=== PATIENT | male | born 1980 | race Caucasian/White ===

== ENCOUNTER 2017-06-30 07:38 | Day surgery (SDC) | payer OTHER ==
[~2017-06-30 07:38] MED LIST: PROPOFOL INJ 200 MG/20 ML VIAL IV ONE
--- NOTE | 2017-06-30 08:37 | Operative Report ---
Operative Report DATE OF SURGERY: 06/30/17 Operative Report: The risks, benefits and alternatives of the procedure including risks of bleeding, perforation requiring surgery are explained to the patient detail and informed consent was obtained. Patient was taken back to the endoscopy suite and placed in the left, lateral decubital position. Timeout was called. Propofol medications administered. A rectal examination was done which did not reveal any masses, tears or fissures. An Olympus videoscope was inserted into the patient's rectum. The scope was then gradually advanced all the way to the cecum. The cecum was identified by the usual anatomical landmarks including the ileocecal valve as well as the appendiceal office. Photodocumentation is obtained. The scope was then sequentially pulled back via the various segments of the colon including the ascending colon, hepatic flexure, transverse colon, splenic flexure, descending colon and finding to the rectosigmoid portions of the colon. Retroflexion maneuver was performed. PREOPERATIVE DIAGNOSIS: Change in bowel habits, abdominal pain. POSTOPERATIVE DIAGNOSIS: Mild right side inflammation status post biopsy OPERATION: Colonoscopy with biopsy SURGEON: SALAS MATA ANESTHESIA: LMAC TISSUE REMOVED OR ALTERED: Right side mucosal specimens obtained COMPLICATIONS: None. ESTIMATED BLOOD LOSS: None. INTRAOPERATIVE FINDINGS: As noted above. PROCEDURE: Patient tolerated the procedure well. No immediate postprocedure complications are noted. Patient discharged in good condition. Discharge date 06/30/2017. Discharge diet: Regular. Discharge activity: Regular. 2-3 week follow-up to discuss findings. Patient is instructed call the office or proceed to the emergency room should there be any further problems or questions. We will wait on pathology.
[2017-06-30 09:09] VITALS: BP 119/58
== END 2017-06-30 09:03 | disposition home or self-care (01) ==
LOC: END 07:38
PROVIDERS: ATTEND Internal Medicine Gastroenterology
PROC: 0DBF8ZX Excision of Right Large Intestine, Via Natural or Artificial Opening Endoscopic, Diagnostic (ICD-10-PCS; principal; 2017-06-30 09:00)
DX: K52.9 Noninfective gastroenteritis and colitis, unspecified (principal); I10 Essential (primary) hypertension; Z79.899 Other long term (current) drug therapy; Z79.82 Long term (current) use of aspirin
CPT/HCPCS: 45380; 88305 ×2; J2704; 810

== ENCOUNTER 2019-02-09 19:12 | Emergency (ER) | payer BC, OTHER ==
--- NOTE | 2019-02-09 20:58 | ER Document Report ---
ED Medical Screen (RME) - General Chief Complaint: Abdominal Pain Stated Complaint: RIGHT SIDE PAIN Time Seen by Provider: 02/09/19 20:54 Notes: Patient is a 38-year-old male presents to the emergency department for right upper quadrant pain that started around 1600 hrs. today. Patient states he does have an extensive history of intermittent right upper abdominal pain. States he has been to urgent care for evaluation but has never had any imaging testing done. Patient is denying any vomiting, diarrhea, fever. Past medical history: Hypertension, hyperlipidemia Medications: Candesartan Allergies: None Surgical history: None gENERAL: Alert, interacts well. No acute distress. ABDOMEN: Soft, minor tenderness noted right upper quadrant, non-distended. Bowel sounds present in all 4 quadrants. No McBurney's point tenderness. SKIN: Warm, dry, normal turgor. No rashes or lesions noted. I have greeted and performed a rapid initial assessment of this patient. A comprehensive ED assessment and evaluation of the patient, analysis of test results and completion of the medical decision making process will be conducted by additional ED providers. TRAVEL OUTSIDE OF THE [place] IN LAST 30 DAYS: No - Related Data Allergies/Adverse Reactions: No Known Allergies Allergy (Verified 06/30/17 07:41) Past Medical History - Past Medical History Cardiac Medical History: Reports: Hx Hypertension Denies: Hx Coronary Artery Disease, Hx Heart Attack Pulmonary Medical History: Reports: Hx Asthma - CHILDHOOD Denies: Hx Bronchitis, Hx COPD, Hx Pneumonia Neurological Medical History: Denies: Hx Cerebrovascular Accident, Hx Seizures Musculoskeltal Medical History: Denies Hx Arthritis Psychiatric Medical History: Reports: Hx Depression - Immunizations Hx Diphtheria, Pertussis, Tetanus Vaccination: - UNSURE Physical Exam - Vital signs Vitals: Temp Pulse Resp BP Pulse Ox 99.4 F 70 16 151/79 H 100 02/09/19 19:19 02/09/19 19:19 02/09/19 19:19 02/09/19 19:19 02/09/19 19:19 Course - Vital Signs Vital signs: Temp Pulse Resp BP Pulse Ox 99.4 F 70 16 151/79 H 100 02/09/19 19:19 02/09/19 19:19 02/09/19 19:19 02/09/19 19:19 02/09/19 19:19
[2019-02-09 21:40] LABS: ABSOLUTE BASOPHILS # (AUTO) 0.1 10^3/uL (0.0-0.2); ABSOLUTE EOSINOPHILS # (AUTO) 0.2 10^3/uL (0.0-0.6); ABSOLUTE LYMPHOCYTES (AUTO) 3.1 10^3/uL (0.5-4.7); ABSOLUTE MONOCYTES (AUTO) 0.6 10^3/uL (0.1-1.4); ABSOLUTE NEUT (AUTO) 6.4 10^3/uL (1.7-8.2); BASOPHILS % (AUTO) 0.6 % (0-2); EOSINOPHILS % (AUTO) 1.5 % (0-6); HEMATOCRIT 45.8 % (37.9-51.0); HEMOGLOBIN 16.2 g/dL (13.5-17.0); LYMPHOCYTES % (AUTO) 29.8 % (13-45); MEAN CORPUSCULAR HEMOGLOBIN 29.8 pg (27.0-33.4); MEAN CORPUSCULAR HGB CONC 35.4 g/dL (32.0-36.0); MEAN CORPUSCULAR VOLUME 84 fl (80-97); PLATELET COUNT 222 10^3/uL (150-450); RED BLOOD COUNT 5.43 10^6/uL (4.35-5.55); RED CELL DISTRIBUTION WIDTH 13.3 % (11.5-14.0); SEGMENTED NEUTROPHILS % (AUTO) 62.1 % (42-78); TOTAL CELLS COUNTED % (AUTO) 100 %; WHITE BLOOD COUNT 10.3 10^3/uL (4.0-10.5)
[2019-02-09 22:09] LABS: ALANINE AMINOTRANSFERASE 24 U/L (21-72); ALBUMIN 5.1 g/dL (3.5-5.0); ALKALINE PHOSPHATASE 41 U/L (38-126); ANION GAP 11 (5-19); ASPARTATE AMINO TRANSFERASE 17 U/L (17-59); BILIRUBIN,DIRECT 0.1 mg/dL (0.0-0.4); BILIRUBIN,TOTAL 0.5 mg/dL (0.2-1.3); BLOOD UREA NITROGEN 15 mg/dL (7-20); CARBON DIOXIDE 29 mmol/L (22-30); CHLORIDE 100 mmol/L (98-107); GLUCOSE 80 mg/dL (75-110); LIPASE 180.5 U/L (23-300); POTASSIUM 4.4 mmol/L (3.6-5.0); SODIUM 139.9 mmol/L (137-145); TOTAL PROTEIN 7.6 g/dL (6.3-8.2)
--- NOTE | 2019-02-09 22:37 | RADIOLOGY REPORT (SQ) ---
EXAM DESCRIPTION: US ABDOMEN DOPPLER LIMITED COMPLETED DATE/TME: 02/09/2019 20:54 CLINICAL HISTORY: 38 years, Male, RUQ [pain Findings: Pancreas is within normal limits. No focal hepatic lesions. No significant biliary dilatation with CBD measuring 4 mm. Right kidney measures 10 cm in length. No right hydronephrosis. No right upper quadrant ascites. Portal vein is patent with hepatopedal flow noted on color and spectral Doppler imaging. Aorta and IVC are is within normal limits. Gallbladder demonstrate small layering calculi with no significant wall thickening or pericholecystic fluid. IMPRESSION: Cholelithiasis. No evidence for cholecystitis.
--- NOTE | 2019-02-09 23:16 | ER Document Report ---
ED General - General Chief Complaint: Abdominal Pain Stated Complaint: RIGHT SIDE PAIN Time Seen by Provider: 02/09/19 20:54 TRAVEL OUTSIDE OF THE [place] IN LAST 30 DAYS: No - HPI Severity: Moderate Pain Level: 1 Notes: Patient presents to the emergency department for evaluation of epigastric and right upper quadrant abdominal pain. He states he had similar symptoms to this about 6 weeks ago. He was seen at an urgent care. They suspect he may have ga llstones. He states he tried to address this with dietary changes. He was doing well but recently has started eating more fatty and greasy foods. He states earlier today he had food from a [place] restaurant, half an hour later he began having an increase in this pain. He states he still has had a low- grade fevers, but is never had a temperature higher than 100.0. He has had some nausea but no emesis. Normal colored urine. Normal bowel movements. - Related Data Allergies/Adverse Reactions: No Known Allergies Allergy (Verified 06/30/17 07:41) Past Medical History - General Information source: Patient - Social History Smoking Status: Never Smoker Frequency of alcohol use: Rare Drug Abuse: None Family History: Malignancy - Grandmother with cancer of the gallbladder Patient has suicidal ideation: No Patient has homicidal ideation: No - Past Medical History Cardiac Medical History: Reports: Hx Hypertension Denies: Hx Coronary Artery Disease, Hx Heart Attack Pulmonary Medical History: Reports: Hx Asthma - CHILDHOOD Denies: Hx Bronchitis, Hx COPD, Hx Pneumonia Neurological Medical History: Denies: Hx Cerebrovascular Accident, Hx Seizures Renal/ Medical History: Denies: Hx Peritoneal Dialysis Musculoskeletal Medical History: Denies Hx Arthritis Psychiatric Medical History: Reports: Hx Depression - Immunizations Hx Diphtheria, Pertussis, Tetanus Vaccination: - UNSURE Review of Systems - Review of Systems Constitutional: See HPI EENT: No symptoms reported Cardiovascular: No symptoms reported Respiratory: No symptoms reported Gastrointestinal: See HPI Male Genitourinary: No symptoms reported Musculoskeletal: No symptoms reported Skin: No symptoms reported Neurological/Psychological: No symptoms reported Physical Exam - Vital signs Vitals: Temp Pulse Resp BP Pulse Ox 99.4 F 70 16 151/79 H 100 02/09/19 19:19 02/09/19 19:19 02/09/19 19:19 02/09/19 19:19 02/09/19 19:19 - Notes Notes: Vital signs reviewed, please refer to chart. Patient is normocephalic, atraumatic. Pupils equal round, reactive to light. Neck is supple without meningismus. Heart is regular rate and rhythm. Lungs are clear to auscultation bilaterally. Abdomen is soft, nontender, normoactive bowel sounds throughout. Extremities without cyanosis, clubbing, edema. Peripheral pulses are equal. Skin is warm and dry. Patient is awake, alert, neurological exam is nonfocal. Course - Re-evaluation Re-evalutation: 02/09/19 23:10 Patient presents to the emergency department for evaluation. Laboratory investigations and imaging ordered through triage. Labs were entirely unremarkable. Imaging did reveal cholelithiasis without any evidence of cholecystitis or obstruction. The patient's pain is improved without any sort of intervention here. We did have an extensive discussion in regards to dietary and lifestyle changes that could keep his symptoms under control. He voiced understanding to this. I will go ahead and also put the name of our on-call surgeon for evaluation for possible cholecystectomy. We discussed symptoms that should prompt him to return to the ER, including but not limited to fever, increased pain, yellowing of the skin or eyes, and tea colored urine. He voiced understanding to this and will be discharged. - Vital Signs Vital signs: Temp Pulse Resp BP Pulse Ox 99.4 F 70 16 151/79 H 100 02/09/19 19:19 02/09/19 19:19 02/09/19 19:19 02/09/19 19:19 02/09/19 19:19 - Laboratory Result Diagrams: 02/09/19 21:24 02/09/19 21:24 Laboratory results interpreted by me: 02/09/19 21:24 Albumin 5.1 H - Diagnostic Test Radiology reviewed: Reports reviewed - Cholelithiasis without evidence of obstruction or cholecystitis Discharge - Discharge Clinical Impression: Cholelithiasis Qualifiers: Cholelithiasis location: gallbladder Cholecystitis presence: without cholecystitis Disposition: HOME, SELF-CARE Instructions: Gallbladder Disease ([facility]) Additional Instructions: Avoid fatty and greasy foods. If you develop fever, increased pain, yellowing of the skin or eyes, tea colored urine, or any other new or concerning symptoms, return immediately to the emergency department for evaluation. Otherwise follow-up with your primary care physician in 1-2 weeks, and consider consulting our on-call surgeon. Referrals: SUKHDEEP DALTON MD [ACTIVE STAFF] - Follow up as needed
[2019-02-09 23:53] VITALS: BP 133/88
== END 2019-02-10 00:05 | disposition home or self-care (01) ==
LOC: ER 19:12
DX: K80.20 Calculus of gallbladder without cholecystitis without obstruction (principal); R10.9 Unspecified abdominal pain; R10.13 Epigastric pain; R10.11 Right upper quadrant pain; R50.9 Fever, unspecified; R11.0 Nausea; I10 Essential (primary) hypertension; J45.909 Unspecified asthma, uncomplicated
CPT/HCPCS: 36415; 76705; 80053; 83690; 85025; 93976; 99284

== ENCOUNTER 2019-04-02 12:27 | Day surgery (SDC) | payer BC ==
[2019-03-29 10:01] LABS: ALANINE AMINOTRANSFERASE 36 U/L (21-72); ALKALINE PHOSPHATASE 41 U/L (38-126); ANION GAP 16 (5-19); ASPARTATE AMINO TRANSFERASE 27 U/L (17-59); BILIRUBIN,DIRECT 0.2 mg/dL (0.0-0.4); BILIRUBIN,TOTAL 0.8 mg/dL (0.2-1.3); BLOOD UREA NITROGEN 14 mg/dL (7-20); CALCIUM 10.4 mg/dL (8.4-10.2); CARBON DIOXIDE 27 mmol/L (22-30); CHLORIDE 102 mmol/L (98-107); GLUCOSE 86 mg/dL (75-110); POTASSIUM 5.3 mmol/L (3.6-5.0); SODIUM 145.3 mmol/L (137-145)
[2019-03-29 10:13] LABS: TOTAL PROTEIN 8.1 g/dL (6.3-8.2)
--- NOTE | 2019-03-29 19:24 | EKG REPORT ---
SEVERITY:- NORMAL ECG - SINUS RHYTHM : Confirmed by: Chastity Mcpherson 29-Mar-2019 19:23:39
[~2019-04-02 12:27] MED LIST changes: +BUPIVACAINE HCL 0.25 % INJ/PF (2.5 MG/1 ML) 30 ML VIAL ONE; +CEFAZOLIN 2 GM/D5W RTU 2 GM/50 ML RTUPB IV ONE; +CEFOXITIN SODIUM 2 GM in DEXTROSE 5%-WATER 100 ML IV PRN; +IBUPROFEN 800 MG in NORMAL SALINE 250 ML IV PRN; +LACTATED RINGERS 1000 ML IV PRN; +LIDOCAINE 0.5% INJ-PF (5 MG/ML) 50 ML SDV SUBCUT PRN; -PROPOFOL INJ 200 MG/20 ML VIAL IV ONE; +ROCURONIUM BROMIDE INJ 50 MG/5 ML VIAL IV ONE; +SUCCINYLCHOLINE CHLORIDE INJ 200 MG/10 ML VIAL ONE
[2019-04-02] MEDS ORDERED: MIDAZOLAM 2 MG/2 ML INJ ONE (18:03)
[2019-04-02] MEDS ORDERED: FENTANYL CITRATE INJ/PF 100 MCG/2 ML AMPUL ONE (18:03)
[2019-04-02] MEDS ORDERED: HYDROMORPHONE HCL INJ/PF 2 MG/ML AMPULE ONE (18:03)
[2019-04-02] MEDS ORDERED: ONDANSETRON HCL INJ/PF 4 MG/2 ML SDV ONE ×2 (18:04→20:38)
[2019-04-02] MEDS ORDERED: PROPOFOL INJ 200 MG/20 ML VIAL IV ONE (18:04)
[2019-04-02] MEDS ORDERED: DEXAMETHASONE SOD PHOSPHATE INJ 4 MG/1 ML VIAL ONE (18:04)
[2019-04-02] MEDS ORDERED: MORPHINE SULFATE 10 MG/ML INJ IV PRN (18:52)
[2019-04-02] MEDS ORDERED: MEPERIDINE HCL/PF INJ 25 MG/1 ML DISP.SYRIN IV PRN (18:52)
[2019-04-02] MEDS ORDERED: FENTANYL CITRATE INJ/PF 100 MCG/2 ML AMPUL IV PRN ×3 (18:52)
[2019-04-02] MEDS ORDERED: DIPHENHYDRAMINE HCL 50 MG/ML VIAL IV PRN (18:52)
[2019-04-02] MEDS ORDERED: PROMETHAZINE HCL INJ 25 MG/1 ML VIAL IV PRN (18:52)
[2019-04-02] MEDS ORDERED: NALOXONE HCL INJ/PF 0.4 MG/1 ML SDV ONE (20:57)
[2019-04-02 22:21] VITALS: BP 139/71
--- NOTE | 2019-04-04 22:45 | Discharge Summary ---
Discharge Summary (SDC) - Discharge Final Diagnosis: Symptomatic cholelithiasis Date of Surgery: 04/02/19 Discharge Date: 04/02/19 Condition: Stable Forms: ASU Anesthesia D/C Instruction, Discharge POC-Surgical Service Treatment or Instructions: Discharge home. Diet as tolerated. Activity: No lifting greater than 10 pounds x 6 weeks. Follow-up with me in 7 to 10 days. Ibuprofen 800 mg p.o. 3 times daily with meals. Moclips 10/325 mg p.o. every 6 hours as needed for pain. Referrals: KHOI BURGESS MD [ACTIVE STAFF] - (Follow up with Dr Burgess in 7-10 days.) AMINATA GARCIA MD [Primary Care Provider] - Discharge Diet: As Tolerated Respiratory Treatments at Home: Deep Breathing/Coughing, Incentive Spirometer Discharge Activity: No Lifting Over 10 Pounds, No Lifting/Push/Pulling Home Care Assistance: Provided by Family Report the Following to Your Physician Immediately: Shortness of Breath, Nausea, Vomiting, Increase in Pain, Yellow Skin, Fever over 101 Degrees, Unusual Bleeding, Redness, Swelling, Warmth, Increased Soreness, Drainage-Yellow, IV Site Infection Signs
--- NOTE | 2019-04-04 22:50 | Operative Report ---
Nonrecallable Operative Report DATE OF SURGERY: 04/02/19 PREOPERATIVE DIAGNOSIS: Symptomatic cholelithiasis POSTOPERATIVE DIAGNOSIS: Same OPERATION: Laparoscopic cholecystectomy SURGEON: KHOI STEVENS ANESTHESIA: GA TISSUE REMOVED OR ALTERED: Gallbladder COMPLICATIONS: None apparent ESTIMATED BLOOD LOSS: Minimal PROCEDURE: Drains/implants: None. Procedure in detail: After informed consent was obtained, the patient was brought into the operating room and laid in the supine position. The area of the abdomen was prepped and draped in a normal sterile fashion. A supraumbilical incision was created with a 15 blade scalpel. Dissection was carried through the subcutaneous tissue using sharp and blunt dissection. The cicatrix was identified, grasped with a Ashley clamp, and retracted upwards. The linea alba fascia was incised sharply, the abdomen was entered sharply. The balloon trocar was inserted, and pneumoperitoneum was achieved. A subxiphoid 5 mm port was placed under direct laparoscopic visualization. 2 more 5 mm ports were placed in the right upper quadrant in similar fashion. Atraumatic graspers were placed through the 5 mm ports. The gallbladder was retracted cephalad and laterally. Dissection was begun in the triangle of Calot. The cystic duct and cystic artery were fully visualized and skeletonized, seeing the liver through the triangle. Once the critical view of safety was obtained, the cystic duct and cystic artery were clipped and cut with laparoscopic instruments. The gallbladder was then removed from the liver using Bovie electrocautery. The gallbladder was grasped with a large clamp and pulled out through the umbilicus. The camera was reinserted. The hilum was inspected. It was found to be free of any leakage of blood or bile. Once this was confirmed, the 5 mm trochars were removed under direct laparoscopic visualization. The supraumbilical trocar was removed, and pneumoperitoneum was relieved. The supraumbilical fascia was closed using 0 Vicryl suture in [id number] fashion. The overlying skin was closed using 4-0 Vicryl Rapide suture in subcu ticular fashion. All sponge, instrument, and needle counts were correct x2. Condition: Stable.
== END 2019-04-02 22:10 | disposition home or self-care (01) ==
LOC: OROUT 12:27
PROVIDERS: ATTEND Surgery
DX: K80.10 Calculus of gallbladder with chronic cholecystitis without obstruction (principal); I10 Essential (primary) hypertension; F32.9 Major depressive disorder, single episode, unspecified; E78.5 Hyperlipidemia, unspecified; E66.9 Obesity, unspecified; J45.909 Unspecified asthma, uncomplicated; F17.210 Nicotine dependence, cigarettes, uncomplicated; Z79.899 Other long term (current) drug therapy; Z79.51 Long term (current) use of inhaled steroids; Z68.38 Body mass index [BMI] 38.0-38.9, adult
CPT/HCPCS: 93005; 36415 ×2; 84132; 80053; 88304 ×2; 93010; 47562; J2250; J3490; J1100; J0694; J3010; J2310; J1170; J0330; J2405; J7050; J2704; J0690; J1741; 790; J7060